=== PATIENT | male | born 1985 | race Caucasian/White ===

== ENCOUNTER 2020-07-16 13:41 | Emergency (ER) | payer MEDICAID ==
[~2020-07-16] VITALS: Ht 170.2 cm; Wt 83.9 kg
[2020-07-16 13:53] VITALS: BP 130/79
--- NOTE | 2020-07-16 14:03 | NUR ---
WAIT AT LOBBY.
[2020-07-16] MEDS ORDERED: cefTRIAXone 250 MG in LIDOCAINE MPF 1% 0.9 ML IM ONE (14:35)
[2020-07-16] MEDS ORDERED: LIDOCAINE MPF 1% 5 ML ONE (14:38)
[2020-07-16] MEDS ORDERED: cefTRIAXone 250 MG VIAL ONE (14:38)
--- NOTE | 2020-07-16 14:40 | NUR ---
C/O LEFT EYE PAIN 5/10 , BLURRY X 3 DAYS, WATERY & YELLOW DISCHARGE X TODAY. DENIES TRAUMA. VA: RIGHT EYE 20/25, LEFT EYE 20/25, BOTH EYE 20/20 MED HX: DENIES
--- NOTE | 2020-07-16 14:51 | NUR ---
URINE SPECIMEN SENT TO LAB.
[2020-07-16 15:00] VITALS: BP 121/67
--- NOTE | 2020-07-16 15:00 | NUR ---
Patient discharged with v/s stable. Written and verbal after care instructions given and explained. Patient alert, oriented and verbalized understanding of instructions. Ambulatory with steady gait. All questions addressed prior to discharge. ID band removed. Patient advised to follow up with PMD. Rx of DOXYCYCLINE & GENTAMICIN given. Patient educated on indication of medication including possible reaction and side effects. Opportunity to ask questions provided and answered.
[2020-07-18 06:11] LABS: CHLAMYDIA TRACHOMATIS AMP DNA Negative (Negative)
== END 2020-07-16 15:00 | disposition home or self-care (01) ==
LOC: MED 13:41
DX: H10.9 Unspecified conjunctivitis (principal)
CPT/HCPCS: 36415; 96372; 99283; J0696; J2001; 87491